=== PATIENT | female | born 1955 | race Caucasian/White ===

== ENCOUNTER 2017-12-17 14:46 | Emergency (ER) | payer OTHER ==
--- NOTE | 2017-12-17 15:33 | ED Physician Documentation ---
PD HPI CHEST PAIN - Stated complaint Stated Complaint: ABN HEART RATE/CP - Chief complaint Chief Complaint: Cardiac - History obtained from History obtained from: Patient - History of Present Illness Timing - onset: How many hours ago (1), Today Timing - onset during: Light activity Timing - details: Abrupt onset, Still present, Constant Quality: Tightness Location: Substernal Worsened by: Exertion Associated symptoms: Shortness of air, Feeling faint / dizzy, Palpitations Similar symptoms before: Diagnosis (paroxysmal atrial fib - makes her feel really fatigued and short of breath when it occurs. Had been doing okay with less episodes with metoprolol. Her BP was still high with it though, so her PCP changed her to Losartan several days ago to help with BP better. Shew as to add back metoprolol if her BP stayed elevated.) Recently seen: Clinic Review of Systems Ten Systems: 10 systems reviewed and negative Constitutional: denies: Fever, Chills, Myalgias Nose: denies: Rhinorrhea / runny nose, Congestion Throat: denies: Sore throat Respiratory: denies: Cough, Wheezing GI: denies: Abdominal Pain, Nausea, Vomiting, Diarrhea, Bloody / black stool : denies: Dysuria, Frequency Skin: denies: Rash, Lesions Musculoskeletal: denies: Extremity swelling Neurologic: reports: Generalized weakness. denies: Near syncope Endocrine: denies: Weight loss PD PAST MEDICAL HISTORY - Past Medical History Cardiovascular: Hypertension, Atrial fibrillation Respiratory: None Neuro: None Endocrine/Autoimmune: None - Present Medications Home Medications: Ambulatory Orders Medication Instructions Recorded Confirmed Losartan [Cozaar] 50 mg 12/17/17 - Allergies Allergies/Adverse Reactions: Allergies Allergy/AdvReac Type Severity Reaction Status Date / Time Sulfa (Sulfonamide Allergy Intermediate Edema Verified 12/17/17 14:58 Antibiotics) - Social History Does the pt smoke?: No Does the pt have substance abuse?: No - Family History Family history: reports: CAD PD ED PE NORMAL - Vitals Vital signs reviewed: Yes - General General: Alert and oriented X 3, No acute distress, Well developed/nourished - HEENT HEENT: Moist mucous membranes, Pharynx benign - Neck Neck: Supple, no meningeal sign, No adenopathy - Cardiac Cardiac: No murmur, No rub. No: RRR (fast and irregular, initially about 130s.) - Respiratory Respiratory: Clear bilaterally - Abdomen Abdomen: Soft, Non tender - Back Back: No CVA TTP - Derm Derm: Normal color, Warm and dry - Extremities Extremities: No tenderness to palpate, Normal ROM s pain, No edema, No calf tenderness / cord - Neuro Neuro: Alert and oriented X 3, No motor deficit, Normal speech Eye Opening: Spontaneous Motor: Obeys Commands Verbal: Oriented GCS Score: 15 Results - Vitals Vitals: Vital Signs - 24 hr 12/17/17 12/17/17 12/17/17 14:49 18:43 19:54 Temperature 36.6 C Heart Rate 65 90 88 Respiratory 16 18 12 Rate Blood Pressure 152/91 H 120/94 H 111/97 H O2 Saturation 100 97 100 12/17/17 12/17/17 20:43 21:00 Temperature Heart Rate 94 63 Respiratory 14 14 Rate Blood Pressure 138/99 H 126/87 H O2 Saturation 100 100 Oxygen O2 Source Room air - EKG (time done) 14:53 Rate: Rate (enter#) (137) Rhythm: Atrial fibrillation [place]: Normal QRS: Normal Ischemia: Normal ST segments, Non specific changes. No: ST elevation c/w ischemia, ST depression - Labs Labs: Laboratory Tests 12/17/17 12/17/17 16:08 16:12 WBC 4.1 L RBC 4.43 Hgb 14.0 Hct 41.2 MCV 92.9 MCH 31.6 H MCHC 34.1 RDW 13.3 Plt Count 190 MPV 7.5 L Neut # (Auto) 2.2 Lymph # (Auto) 1.4 L [place] # (Auto) 0.3 Eos # (Auto) 0.1 Baso # (Auto) 0.0 Absolute Nucleated RBC 0.00 Nucleated RBC % 0.0 Sodium 139 Potassium 3.8 Chloride 105 Carbon Dioxide 26 Anion Gap 8.0 BUN 23 H Creatinine 1.1 H Estimated GFR (MDRD) 50 L Glucose 99 Calcium 10.2 Magnesium 2.4 Total Bilirubin 0.9 AST 21 ALT 20 Alkaline Phosphatase 46 Total Protein 7.4 Albumin 4.6 Globulin 2.8 Albumin/Globulin Ratio 1.6 Lipase 30 PD MEDICAL DECISION MAKING - ED course Complexity details: re-evaluated patient (talked with patient about options for the atrial fib. Gave metoprolol for rate control first and that got rate below 100. Tried procainamide first without change in rhythm. shared decision for cardioversion next but she converted to NSR just as setting up for the procedure. ), considered differential (history of paroxysmal atrial fib and her BP had been elevated despite metoprolol, so PMD changed to Losartan without beta initially. Will have her add the metoprolol for sure. ), d/w patient - Sepsis Event Vital Signs: Vital Signs - 24 hr 12/17/17 12/17/17 12/17/17 14:49 18:43 19:54 Temperature 36.6 C Heart Rate 65 90 88 Respiratory 16 18 12 Rate Blood Pressure 152/91 H 120/94 H 111/97 H O2 Saturation 100 97 100 12/17/17 12/17/17 20:43 21:00 Temperature Heart Rate 94 63 Respiratory 14 14 Rate Blood Pressure 138/99 H 126/87 H O2 Saturation 100 100 Oxygen O2 Source Room air Departure - Departure Disposition: 01 Home, Self Care Clinical Impression: Paroxysmal atrial fibrillation with rapid ventricular response Condition: Stable Record reviewed to determine appropriate education?: Yes Instructions: ED Afib Follow-Up: Jw Bonilla MD [Primary Care Provider] - Comments: Drink lots of fluids. Continue the losartan. Add the metoprolol 50 mg daily for rate control to reduce the recurrence of the atrial fibrillation. Follow- up with your primary care in about a week. Check your blood pressure daily to see how it is doing. Discharge Date/Time: 12/17/17 21:25
[2017-12-17] MEDS ORDERED: METOPROLOL 5 MG/5 ML VIAL IVP STA ×2 (15:50→20:32)
[2017-12-17] MEDS ORDERED: SODIUM CHLORIDE 0.9% 1,000 ML IV ONE (15:50)
[2017-12-17 16:14] LABS: EOSINOPHILS # (AUTO) 0.1 10^3/uL (0.0-0.7); EOSINOPHILS % (AUTO) 2.1 %; LYMPHOCYTES # (AUTO) 1.4 10^3/uL (1.5-3.5); MEAN CORPUSCULAR HEMOGLOBIN 31.6 pg (27.0-31.0); MEAN CORPUSCULAR HGB CONC 34.1 g/dL (32.0-36.0); MEAN CORPUSCULAR VOLUME 92.9 fL (81.0-99.0); MEAN PLATELET VOLUME 7.5 fL (7.9-10.8); MONOCYTES # (AUTO) 0.3 10^3/uL (0.0-1.0); MONOCYTES % (AUTO) 8.2 %; NEUTROPHILS # (AUTO) 2.2 10^3/uL (1.5-6.6); NEUTROPHILS % (AUTO) 54.7 %; PLT - PLATELET COUNT 190 10^3/uL (130-450); RED BLOOD COUNT 4.43 10^6/uL (4.20-5.40); RED CELL DISTRIBUTION WIDTH 13.3 % (12.0-15.0); WHITE BLOOD COUNT 4.1 x10^3/uL (4.8-10.8)
[2017-12-17 16:30] LABS: ALBUMIN 4.6 g/dL (3.2-5.5); ALBUMIN/GLOBULIN RATIO 1.6 (1.0-2.2); BILIRUBIN,TOTAL 0.9 mg/dL (0.2-1.0); CALCIUM 10.2 mg/dL (8.5-10.3); CREATININE 1.1 mg/dL (0.4-1.0); MAGNESIUM 2.4 mg/dL (1.7-2.8); TOTAL PROTEIN 7.4 g/dL (6.7-8.2)
[2017-12-17] MEDS ORDERED: PROCAINAMIDE 1,000 MG/10 ML SYRINGE IV STA (17:00)
[2017-12-17] MEDS ORDERED: PROCAINAMIDE 1,000 MG in SODIUM CHLORIDE 0.9% 240 ML IV STA (18:13)
[2017-12-17] MEDS ORDERED: PROPOFOL 200 MG/20 ML VIAL IVP STA (20:33)
[2017-12-17 21:01] VITALS: BP 126/87
== END 2017-12-17 21:25 | disposition home or self-care (01) ==
LOC: ED 14:46
DX: I48.0 Paroxysmal atrial fibrillation (principal); I10 Essential (primary) hypertension
CPT/HCPCS: 36415; 80053; 83690; 83735; 85025; 92960; 93005; 96361; 96365; 96366; 96375; 96376; 99283; 99284

== ENCOUNTER 2018-01-05 08:15 | Outpatient (CLI) | payer OTHER | END 2018-01-05 08:16 | disposition home or self-care (01) | LOC: DI 08:15 | PROVIDERS: ATTEND Internal Medicine Cardiovascular Disease | DX: I48.91 Unspecified atrial fibrillation (principal) | CPT/HCPCS: 93306 ==

== ENCOUNTER 2020-06-22 15:06 | Outpatient (CLI) | payer OTHER ==
--- NOTE | 2020-06-29 14:58 | Mammography Report ---
BILATERAL DIGITAL SCREENING MAMMOGRAM 3D/2D: 06/22/2020 CLINICAL: Routine screening. Comparison is made to exams dated: 08/06/2014 mammogram and 04/15/2013 mammogram - [facility]. The tissue of both breasts is heterogeneously dense. This may lower the sensiti vity of mammography. No significant masses, calcifications, or other findings are seen in either breast. There has been no significant interval change. IMPRESSION: NEGATIVE There is no mammographic evidence of malignancy. A 1 year screening mammogram is recommended. This exam was interpreted at Station ID: [id number]. NOTE: For mammograms, a report in lay terms will be sent to the patient. Approximately 15% of breast malignancies will not be visualized mammographically. In the management of a palpable breast mass, a negative mammogram must not discourage biopsy of a clinically suspicious lesion. Electronically Signed By: Fransisco Castillo M.D. ddp/penrad:06/28/2020 08:33:17 ACR BI-RADS Category 1: Negative 3341F PARENCHYMAL PATTERN: (D) - The breast(s) demonstrate(s) heterogeneously dense fibroglandular anahy ortiz. BI-RADS CATEGORY: (1) - 1 RECOMMENDATION: (ANNUAL) - Recommend routine annual screening mammography. [id number] 1 year screening LATERALITY: (B)
== END 2020-06-22 15:07 | disposition home or self-care (01) ==
LOC: DI.N 15:06
DX: Z12.31 Encounter for screening mammogram for malignant neoplasm of breast (principal)

== ENCOUNTER 2020-11-03 12:14 | Emergency (ER) | payer OTHER ==
--- NOTE | 2020-11-03 12:47 | ED Physician Documentation ---
PD HPI URI - Stated complaint Stated Complaint: SINUS PX - Chief complaint Chief Complaint: Heent - History obtained from History obtained from: Patient - History of Present Illness Timing - onset: How many days ago (several) Timing duration: Days (several) Timing details: Gradual onset, Still present, Waxing and waning Associated symptoms: Chills (today), Sinus pain (left frontal and around eye), Chest pain (some epigastric area pain today, with feeling of fatigue. No cough. She is concerned about sepsis from her sinus infection.). No: Fever, Rhinorrhea ("that is the problem, it isn't draining" per patient.), Sore throat, Swollen nodes, Dry cough Contributing factors: No: Sick contact, Travel, COPD / asthma Improves by: Other (sitting up). No: Rest Worsened by: No: Activity Similar symptoms before: Has not had sx before Recently seen: Clinic (seen by Cardiology yesterday and had her Flecainide dose increased. Other meds the same. Went to PMD Clinic today for her sinus pain to get "some pain meds and an antibiotic". Provider discussing use steroids and antihistamines, so patient came here to ED. Has some epigastric discomfort enroute.) Review of Systems Constitutional: reports: Myalgias, Fatigue. denies: Fever, Chills Nose: reports: Sinus pressure / pain. denies: Rhinorrhea / runny nose, Congestion Throat: denies: Sore throat Respiratory: denies: Cough Skin: denies: Rash, Lesions Neurologic: reports: Generalized weakness. denies: Focal weakness, Numbness PD PAST MEDICAL HISTORY - Past Medical History Cardiovascular: Hypertension, Atrial fibrillation Respiratory: None Neuro: None Endocrine/Autoimmune: None - Present Medications Home Medications: Ambulatory Orders Medication Instructions Recorded Confirmed Amox/Clav 875/125 [Augmentin] 1 each PO Q12H #14 tablet 11/03/20 Flecainide [Tambocar] 100 mg PO Q12H 11/03/20 11/03/20 HYDROcod/ACETAM 5/325 [[place] 5/325] 1 ea PO Q6H PRN #15 tablet 11/03/20 Levothyroxine Sodium [Synthroid] 25 mcg PO 11/03/20 Metoprolol Tartrate [Lopressor] 50 mg BID 11/03/20 11/03/20 dexAMETHasone [Decadron] 4 mg PO DAILY #5 tablet 11/03/20 - Allergies Allergies/Adverse Reactions: Allergies Allergy/AdvReac Type Severity Reaction Status Date / Time Sulfa (Sulfonamide Allergy Intermediate Edema Verified 11/03/20 12:16 Antibiotics) - Social History Does the pt smoke?: No Does the pt have substance abuse?: No PD ED PE NORMAL - Vitals Vital signs reviewed: Yes - General General: Alert and oriented X 3, No acute distress, Well developed/nourished - HEENT HEENT: Ears normal, Moist mucous membranes, Pharynx benign - Neck Neck: Supple, no meningeal sign, No adenopathy - Cardiac Cardiac: RRR (mild bradycardia at 50-55, but patient says is not unusual rate for her on current meds. ), No murmur Results - Vitals Vitals: Vital Signs - 24 hr 11/03/20 11/03/20 11/03/20 12:17 14:15 15:15 Temperature 36.5 C 37.0 C 36.8 C Heart Rate 100 51 L 50 L Respiratory 18 18 12 Rate Blood Pressure 150/100 H 124/85 H 123/76 O2 Saturation 100 99 96 Oxygen O2 Source Room air - EKG (time done) 12:24 Rate: Rate (enter#) (48) Rhythm: Sinus bradycardia [place]: Normal Intervals: Normal [place] QRS: Normal Ischemia: Normal ST segments. No: ST elevation c/w ischemia, ST depression - Labs Labs: Laboratory Tests 11/03/20 11/03/20 11/03/20 13:29 13:29 13:29 WBC 5.4 RBC 4.50 Hgb 14.2 Hct 40.9 MCV 90.9 MCH 31.6 H MCHC 34.7 RDW 12.9 Plt Count 183 MPV 8.9 Neut # (Auto) 3.6 Lymph # (Auto) 1.1 L [place] # (Auto) 0.5 Eos # (Auto) 0.1 Baso # (Auto) 0.0 Absolute Nucleated RBC 0.00 Nucleated RBC % 0.0 Sodium 139 Potassium 4.5 Chloride 104 Carbon Dioxide 26 Anion Gap 9.0 BUN 20 Creatinine 0.9 Estimated GFR (MDRD) 63 L Glucose 113 H Calcium 10.6 H Total Bilirubin 1.3 H AST 21 ALT 21 Alkaline Phosphatase 58 Troponin I High Sens 7.0 Total Protein 7.0 Albumin 4.4 Globulin 2.6 Albumin/Globulin Ratio 1.7 Lipase 22 PD MEDICAL DECISION MAKING - ED course Complexity details: reviewed results, considered differential (focal left frontal and ethmoidal sinus pain. Likely congestion/local pressure but consider secondary local infection. Her prior experience is that "Levaquin always works", but has too much interference with her Flecainide for me to be comfortable Rx that. ), d/w patient ED course: patient having sinus pain and is very uncomfortable due to that. Requersts pain meds. Her prior experience is that an antibiotic is the answer. We discussed causes of sinus problems, such as environmental allergies, viral illness, etc and sometimes there can be bacterial infection too. The treatment is targeted to approach all of these. She agreed to anti-inflammatories, antihistamine. We shared decision for antibiotic, but I was not using Levaquin due to interaction with her FLecainide, which she has only been on for 6 months or so, so had not had experience of Levaquin along with it, and she concurs that it would not be a good abx. Agrees on Augmentin, even though Amox has not seemed to work in the past for her. She is to watch her heart rate daily, which she says she has been less vigilant about, given her increased dose of Flecainide. HR here was in 50s, which she says is not unusual. Departure - Departure Disposition: 01 Home, Self Care Clinical Impression: Chest discomfort Sinusitis, acute frontal Qualifiers: Recurrence: recurrent Qualified Code(s): J01.11 - Acute recurrent frontal sinusitis Condition: Stable Record reviewed to determine appropriate education?: Yes Instructions: ED Sinusitis Abx Tx Follow-Up: Jw Bonilla MD [Primary Care Provider] - [facility] [Provider Group] Prescriptions: Amox/Clav 875/125 [Augmentin] 1 each PO Q12H #14 tablet dexAMETHasone [Decadron] 4 mg PO DAILY #5 tablet HYDROcod/ACETAM 5/325 [[place] 5/325] 1 ea PO Q6H PRN #15 tablet PRN Reason: Pain Comments: Saline nasal spray several times daily to help clear the nasal passage and hopefully improve sinus outflow. Decadron steroid anti-inflammatory daily for the next 5 days. Augmentin antibiotic twice daily for a week as this does not interfere with your flecainide as would the Levaquin or Cipro type medications amongst others. Stay well-hydrated. Add Tylenol or hydrocodone as needed for pain. Follow-up with your primary care and ear nose throat. Discharge Date/Time: 11/03/20 15:19
[2020-11-03] MEDS ORDERED: HYDROcod/ACETAM 5/325 MG TABLET PO STA (13:16)
[2020-11-03] MEDS ORDERED: DEXAMETHASONE 10 MG/ML VIAL PO STA (13:17)
[2020-11-03] MEDS ORDERED: AMOX/CLAV 875 MG/125 MG TABLET PO STA (13:17)
[2020-11-03] MEDS ORDERED: CHERRY SYRUP 10 ML UDC PO ONE (13:17)
[2020-11-03 13:32] LABS: BASOPHILS % (AUTO) 0.7 %; EOSINOPHILS # (AUTO) 0.1 10^3/uL (0.0-0.7); HCT - HEMATOCRIT 40.9 % (37.0-47.0); HGB - HEMOGLOBIN 14.2 g/dL (12.0-16.0); LYMPHOCYTES # (AUTO) 1.1 10^3/uL (1.5-3.5); LYMPHOCYTES % (AUTO) 21.2 %; MEAN CORPUSCULAR HEMOGLOBIN 31.6 pg (27.0-31.0); MEAN CORPUSCULAR HGB CONC 34.7 g/dL (32.0-36.0); MEAN CORPUSCULAR VOLUME 90.9 fL (81.0-99.0); MEAN PLATELET VOLUME 8.9 fL (7.9-10.8); MONOCYTES # (AUTO) 0.5 10^3/uL (0.0-1.0); MONOCYTES % (AUTO) 8.4 %; NEUTROPHILS # (AUTO) 3.6 10^3/uL (1.5-6.6); NEUTROPHILS % (AUTO) 67.5 %; PLT - PLATELET COUNT 183 10^3/uL (130-450); RED CELL DISTRIBUTION WIDTH 12.9 % (12.0-15.0); WHITE BLOOD COUNT 5.4 x10^3/uL (4.8-10.8)
[2020-11-03 13:52] LABS: ALBUMIN 4.4 g/dL (3.2-5.5); ALBUMIN/GLOBULIN RATIO 1.7 (1.0-2.2); BILIRUBIN,TOTAL 1.3 mg/dL (0.2-1.0); CALCIUM 10.6 mg/dL (8.5-10.3); CREATININE 0.9 mg/dL (0.4-1.0); POTASSIUM 4.5 mmol/L (3.5-5.0)
[2020-11-03 15:15] VITALS: BP 123/76
== END 2020-11-03 15:19 | disposition home or self-care (01) ==
LOC: ED 12:14
DX: J01.11 Acute recurrent frontal sinusitis (principal); R07.89 Other chest pain; R00.1 Bradycardia, unspecified; I10 Essential (primary) hypertension
CPT/HCPCS: 36415; 80053; 83690; 84484; 85025; 93005; 99283; 99284; A9270

== ENCOUNTER 2021-01-23 13:31 | Outpatient (CLI) | payer OTHER | END 2021-01-23 13:32 | disposition home or self-care (01) | LOC: COV 13:31 | PROVIDERS: ATTEND Internal Medicine Cardiovascular Disease | DX: Z01.812 Encounter for preprocedural laboratory examination (principal); I48.20 Chronic atrial fibrillation, unspecified; Z20.822 Contact with and (suspected) exposure to COVID-19 ==

== ENCOUNTER 2023-03-11 08:11 | Outpatient (CLI) | payer MEDICARE ==
--- NOTE | 2023-03-11 11:37 | Ultrasound Report ---
PROCEDURE: Abdomen Limited INDICATIONS: ELEVATED ALT TECHNIQUE: Real-time focused scanning was performed of the abdomen, with image documentation. COMPARISONS: None. FINDINGS: Liver: Liver is normal in size and homogeneous in echotexture. Gallbladder: The gallbladder wall measures 2 mm in diameter. No stones, sludge, pericholecystic fluid , or sonographic Arnold sign. Biliary ducts: Intrahepatic bile ducts are non-dilated. Extrahepatic bile duct caliber measures 4 m m. Normal is 6-7 mm or less in diameter, or 10 mm or less post-cholecystectomy. Pancreas: Visualized portions of the pancreas are sonographically normal. Right kidney: Normal in size and echotexture. Right kidney measures 10.6 cm long. No hydronephrosis or nephrolithiasis. No solid masses. No complex renal cystic lesions which require follow-up. Aorta: Visualized aorta is normal in caliber at less than 3 cm. IVC: Intrahepatic inferior vena cava is patent. Miscellaneous: No free abdominal fluid. IMPRESSION: Unremarkable abdominal ultrasound. Reviewed by: Miesha Noriega MD on 03/11/2023 11:36 AM PDT Approved by: Miesha Noriega MD on 03/11/2023 11:36 AM PDT Station ID: [id number]
== END 2023-03-11 08:12 | disposition home or self-care (01) ==
LOC: DI 08:11
PROVIDERS: ATTEND Nurse Practitioner Family
DX: R74.01 Elevation of levels of liver transaminase levels (principal)

== ENCOUNTER 2023-05-16 10:23 | Outpatient (CLI) | payer MEDICARE ==
--- NOTE | 2023-05-17 12:27 | Mammography Report ---
BILATERAL DIGITAL SCREENING MAMMOGRAM 3D/2D: 05/16/2023 CLINICAL: Routine screening. Comparison is made to exams dated: 06/22/2020 mammogram - [facility], 08/06/2014 [facility], and 04/15/2013 mammogram - [facility]. There are scattered areas of fibroglandular density in both breasts (category b / 25%-50% glandular t issue). No significant masses, calcifications, or other findings are seen in either breast. There has been no significant interval change. IMPRESSION: NEGATIVE There is no mammographic evidence of malignancy. A 1 year screening mammogram is recommended. Based on the Tyrer Cuzick model (a risk assessment model) the patients lifetime risk is 6.8% and her 10 year risk is 3.6%. According to the ACR, ACS, and NCCN guidelines, an annual breast MRI exam myke g with mammogram is recommended if the patients lifetime risk is 20% or greater. This exam was interpreted at Station ID: [id number]. NOTE: For mammograms, a report in lay terms will be sent to the patient. Approximately 15% of breast malignancies will not be visualized mammographically. In the management of a palpable breast mass, a negative mammogram must not discourage biopsy of a clinically suspicious lesion. Electronically Signed By: Carmen Noel M.D., PH.D eb/penrad:05/16/2023 23:40:32 letter sent: No_Letter ACR BI-RADS Category 1: Negative 3341F PARENCHYMAL PATTERN: (A) - The breast(s) demonstrate(s) scattered fibroglandular densities. BI-RADS CATEGORY: (1) - 1 Mammogram [id number] 1 year screening LATERALITY: (B)
== END 2023-05-16 10:24 | disposition home or self-care (01) ==
LOC: DI.N 10:23
DX: Z12.31 Encounter for screening mammogram for malignant neoplasm of breast (principal); R92.323 Mammographic fibroglandular density, bilateral breasts